=== PATIENT | male | born 1940 | race Caucasian/White ===

== ENCOUNTER → 2021-01-15 | Outpatient (CLI) | payer OTHER ==
[~2021-01-15] VITALS: Ht 185.4 cm; Wt 102.1 kg
[~2021-01-15] MED LIST: ASA81BEC PO; FARXIGA10 MG PO; FLONASE 0.05%50 MCG NARES; HYDROCHLOROTHIA25 M1 PO; LIPITOR 40 MG T40 M1 PO; LOSARTAN POTASS50 MG PO; MELOXICAM15 MG PO; METFORMIN HCL500 MG PO; OZEMPIC0.25 MG/0. SUBQ; PROTONIX40 M2 PO; TAMSULOSIN HCL0.4 MG PO; VITAMIN B COMP1 EACH PO; VITAMIN D325 MC5 PO
--- NOTE | 2021-01-22 08:19 | P ---
[facility] [address] PROCEDURE REPORT Name: DONA CROSS Room #: REG [facility] [id number] Admission: 01/15/21 Attend Phys: Dorian Colmenares Discharge: Date of : 40 Report #: [id number] THIS REPORT FOR: cc: Steven Mancilla MD, Eric K. MD McElhinney, Christian C. MD ~ DATE OF SERVICE: 01/15/2021 PROCEDURE PERFORMED: Upper endoscopy with biopsies. HISTORY OF PRESENT ILLNESS: The patient is an 80-year-old male with a history of gastroesophageal reflux disease, seen in the office by myself in 04/2020 with complaints of intermittent heartburn despite being on Nexium b.i.d. We switched him to Protonix b.i.d., which has been somewhat helpful. He does report some mild dysphagia at times. He has a left upper quadrant discomfort at times. Apparently, he underwent a CT scan of the abdomen and pelvis. I do not have a copy of those results. This showed a possible gastric thickening per the patient. He denies any nausea or vomiting. DESCRIPTION OF PROCEDURE: The risks and benefits of the procedure were explained to the patient, those risks including but not limited to bleeding, perforation and the risk of sedation. He understood these risks and gave informed consent. Sedation was given using propofol per anesthesia. Next, using a standard Olympus upper endoscope, the scope was placed in the patient's mouth and advanced under direct vision through the esophagus, stomach and into the second portion of the duodenum. The larynx was normal in appearance. The esophagus was normal throughout. The GE junction was normal. There was a mild gastritis noted in the fundus and body. Biopsies were obtained to rule out H. pylori. No evidence of ulcerations or erosions. The gastric antrum was normal. The pylorus was normal and patent. The duodenal bulb, first and second portion were all normal. The scope was then brought back up into the patient's stomach and a Savary guidewire was inserted through the scope, leaving the guidewire in place as the scope was then withdrawn. Next, a 51-Maltese Savary dilation of the esophagus was performed without difficulty. The wire and dilator removed. The scope was reintroduced into the patient's stomach. There was no evidence of mucosal tear after dilation. The scope was then withdrawn and the procedure terminated. The patient tolerated the procedure well. IMPRESSION: 1. Mild gastritis. 2. Otherwise, normal upper endoscopy. RECOMMENDATIONS: 1. Await biopsy results. 2. Observe the patient post-dilation. 3. Continue Protonix b.i.d. [address] [address] PROCEDURE REPORT Name: DONA CROSS Room #: REG MIAH Waters#: [id number] Admission: 01/15/21 Attend Phys: Dorian Colmenares Discharge: Date of : 40 Report #: [id number] Thank you for allowing me to participate in his care. <ELECTRONICALLY SIGNED> By: Dorian Navarro MD 01/22/21818 8 04 Dorian Navarro MD /nt
== END | disposition home or self-care (01) ==
LOC: GI 07:16 → EDSTATUS 07:53 → GI 13:29
PROVIDERS: ATTEND Specialist
DX: R12 Heartburn (principal); K29.70 Gastritis, unspecified, without bleeding; R13.10 Dysphagia, unspecified; K21.9 Gastro-esophageal reflux disease without esophagitis; I10 Essential (primary) hypertension; E78.5 Hyperlipidemia, unspecified; E11.9 Type 2 diabetes mellitus without complications; N40.0 Benign prostatic hyperplasia without lower urinary tract symptoms; Z98.890 Other specified postprocedural states; Z96.653 Presence of artificial knee joint, bilateral; Z79.899 Other long term (current) drug therapy; Z20.822 Contact with and (suspected) exposure to COVID-19; Z88.8 Allergy status to other drugs, medicaments and biological substances
CPT/HCPCS: 62110; 62900